=== PATIENT | female | born 1985 | race Two or more races ===

== ENCOUNTER → 2024-03-12 | Outpatient (BNVA) | payer MEDICAID, SELFPAY | END | disposition home or self-care (01) | PROVIDERS: PCP Nurse Practitioner Family; Referring Provider Nurse Practitioner Family; Visit Provider Nurse Practitioner Family | DX: G43.919 Migraine, unspecified, intractable, without status migrainosus (principal) | CPT/HCPCS: 99213 ==

== ENCOUNTER → 2024-05-08 | Outpatient (BNVA) | payer MEDICAID, SELFPAY | END | disposition home or self-care (01) | PROVIDERS: PCP Nurse Practitioner Family; Referring Provider Nurse Practitioner Family; Visit Provider Nurse Practitioner Primary Care | DX: G43.919 Migraine, unspecified, intractable, without status migrainosus (principal); Z13.31 Encounter for screening for depression | CPT/HCPCS: 99214 ==

== ENCOUNTER → 2024-05-19 | Outpatient (BNVA) | payer MEDICAID, SELFPAY | END | disposition home or self-care (01) | PROVIDERS: PCP Nurse Practitioner Family; Referring Provider Nurse Practitioner Family; Visit Provider Nurse Practitioner Family | DX: E55.9 Vitamin D deficiency, unspecified (principal); Z71.2 Person consulting for explanation of examination or test findings; R73.03 Prediabetes; E78.5 Hyperlipidemia, unspecified; F32.9 Major depressive disorder, single episode, unspecified; F41.9 Anxiety disorder, unspecified ==

== ENCOUNTER → 2024-06-16 | Outpatient (BNVA) | payer MEDICAID, SELFPAY | END | disposition home or self-care (01) | PROVIDERS: PCP Nurse Practitioner Family; Referring Provider Nurse Practitioner Family; Visit Provider Nurse Practitioner Family | DX: F32.1 Major depressive disorder, single episode, moderate (principal); G47.00 Insomnia, unspecified; F41.9 Anxiety disorder, unspecified; F40.9 Phobic anxiety disorder, unspecified; R10.13 Epigastric pain; R14.0 Abdominal distension (gaseous) | CPT/HCPCS: 99214 ==

== ENCOUNTER → 2024-07-16 | Outpatient (BNVA) | payer MEDICAID, SELFPAY | END | disposition home or self-care (01) | PROVIDERS: PCP Nurse Practitioner Family; Referring Provider Nurse Practitioner Family; Visit Provider Nurse Practitioner Family | DX: G47.01 Insomnia due to medical condition (principal); F41.9 Anxiety disorder, unspecified; F33.1 Major depressive disorder, recurrent, moderate; F40.9 Phobic anxiety disorder, unspecified | CPT/HCPCS: 99212; G0463 ==

== ENCOUNTER → 2024-08-24 | Outpatient (BNVA) | payer MEDICAID, SELFPAY | END | disposition home or self-care (01) | PROVIDERS: PCP Nurse Practitioner Family; Referring Provider Nurse Practitioner Family; Visit Provider Nurse Practitioner Family | DX: Z00.01 Encounter for general adult medical examination with abnormal findings (principal); R10.2 Pelvic and perineal pain; Z11.3 Encounter for screening for infections with a predominantly sexual mode of transmission; R73.03 Prediabetes; E78.5 Hyperlipidemia, unspecified; G43.919 Migraine, unspecified, intractable, without status migrainosus; E66.3 Overweight; Z68.25 Body mass index [BMI] 25.0-25.9, adult; Z72.3 Lack of physical exercise; R10.13 Epigastric pain; G47.00 Insomnia, unspecified; F41.9 Anxiety disorder, unspecified; F40.9 Phobic anxiety disorder, unspecified; F32.1 Major depressive disorder, single episode, moderate; Z71.85 Encounter for immunization safety counseling; K02.9 Dental caries, unspecified | CPT/HCPCS: 99173; 99215 ==

== ENCOUNTER → 2024-09-03 | Outpatient (BNVA) | payer MEDICAID, SELFPAY | END | disposition home or self-care (01) | PROVIDERS: PCP Nurse Practitioner Family; Referring Provider Nurse Practitioner Family; Visit Provider Nurse Practitioner Family | DX: Z71.2 Person consulting for explanation of examination or test findings (principal); D50.9 Iron deficiency anemia, unspecified; N92.6 Irregular menstruation, unspecified; R94.5 Abnormal results of liver function studies; E78.5 Hyperlipidemia, unspecified; R73.03 Prediabetes; E55.9 Vitamin D deficiency, unspecified | CPT/HCPCS: 99212; G0463 ==

== ENCOUNTER → 2024-09-22 | Outpatient (BNVA) | payer MEDICAID, SELFPAY | END | disposition home or self-care (01) | PROVIDERS: PCP Nurse Practitioner Family; Referring Provider Nurse Practitioner Family; Visit Provider Nurse Practitioner Family | DX: F32.A Depression, unspecified (principal) | CPT/HCPCS: 99213 ==

== ENCOUNTER → 2024-09-24 | Outpatient (CLI) | payer MEDICAID, SELFPAY ==
--- NOTE | 2024-09-24 14:30 | XR_ITS ---
Examination: Pelvic ultrasound, transabdominal, complete Technique: Transabdominal ultrasound of the pelvis performed using grayscale imaging Date and time of exam: September 24, 2024 1451 hours INDICATIONS: Pelvic pain beginning one year ago, intrauterine device low in position on CT pelvis July 30, 2022 FINDINGS: Uterus 11.3 cm vascular mass 21 x 15 x 17 mm lower uterine body cervix region Intrauterine device low in position in the lower uterine segment Scarring in the anterior fundus Endometrial stripe 1.4 cm Right ovary 2.8 x 2.4 cm arterial flow small follicles Left ovary 3.0 x 2.5 cm small follicles IMPRESSION: Recommend transvaginal pelvic sonography follow-up to assess the mass in the lower uterine segment/cervix
== END | disposition home or self-care (01) ==
PROVIDERS: PCP Nurse Practitioner Family; Referring Provider Nurse Practitioner Family; Visit Provider Nurse Practitioner Family
DX: R19.09 Other intra-abdominal and pelvic swelling, mass and lump (principal)
CPT/HCPCS: 76856

== ENCOUNTER → 2024-10-12 | Outpatient (BNVA) | payer MEDICAID, SELFPAY | END | disposition home or self-care (01) | PROVIDERS: PCP Nurse Practitioner Family; Referring Provider Nurse Practitioner Family; Visit Provider Nurse Practitioner Family | DX: Z71.2 Person consulting for explanation of examination or test findings (principal); D50.9 Iron deficiency anemia, unspecified; N85.9 Noninflammatory disorder of uterus, unspecified; N92.6 Irregular menstruation, unspecified; R94.5 Abnormal results of liver function studies ==

== ENCOUNTER → 2024-12-01 | Outpatient (BNVA) | payer MEDICAID, SELFPAY | END | disposition home or self-care (01) | PROVIDERS: PCP Nurse Practitioner Family; Referring Provider Nurse Practitioner Family; Visit Provider Nurse Practitioner Family | DX: Z71.2 Person consulting for explanation of examination or test findings (principal); D50.9 Iron deficiency anemia, unspecified; N85.8 Other specified noninflammatory disorders of uterus; N92.6 Irregular menstruation, unspecified | CPT/HCPCS: 99212; G0463 ==

== ENCOUNTER → 2024-12-02 | Outpatient (BNVA) | payer MEDICAID, SELFPAY | END | disposition home or self-care (01) | PROVIDERS: PCP Nurse Practitioner Family; Referring Provider Nurse Practitioner Family; Visit Provider Nurse Practitioner Family | DX: Z71.2 Person consulting for explanation of examination or test findings (principal); D50.9 Iron deficiency anemia, unspecified; N92.6 Irregular menstruation, unspecified; N85.8 Other specified noninflammatory disorders of uterus; Z23 Encounter for immunization | CPT/HCPCS: 90471; 90686; 99213 ==

== ENCOUNTER → 2024-12-14 | Outpatient (BNVA) | payer MEDICAID, SELFPAY | END | disposition home or self-care (01) | PROVIDERS: PCP Nurse Practitioner Family; Referring Provider Nurse Practitioner Family; Visit Provider Nurse Practitioner Family | DX: Z71.2 Person consulting for explanation of examination or test findings (principal); E78.5 Hyperlipidemia, unspecified; E55.9 Vitamin D deficiency, unspecified; R73.03 Prediabetes; R94.5 Abnormal results of liver function studies | CPT/HCPCS: 99213 ==

== ENCOUNTER → 2024-12-23 | Outpatient (BNVA) | payer MEDICAID, SELFPAY | END | disposition home or self-care (01) | PROVIDERS: PCP Nurse Practitioner Family; Referring Provider Nurse Practitioner Family; Visit Provider Nurse Practitioner Family | DX: F32.1 Major depressive disorder, single episode, moderate (principal); F41.9 Anxiety disorder, unspecified; G47.00 Insomnia, unspecified | CPT/HCPCS: 99214 ==

== ENCOUNTER → 2024-12-29 | Outpatient (BNVA) | payer MEDICAID, SELFPAY | END | disposition home or self-care (01) | PROVIDERS: PCP Nurse Practitioner Family; Referring Provider Nurse Practitioner Family; Visit Provider Nurse Practitioner Family | DX: Z71.3 Dietary counseling and surveillance (principal); D50.9 Iron deficiency anemia, unspecified; E66.3 Overweight; Z68.27 Body mass index [BMI] 27.0-27.9, adult; G47.00 Insomnia, unspecified | CPT/HCPCS: 85018; 99214 ==

== ENCOUNTER → 2025-01-26 | Outpatient (BNVA) | payer MEDICAID, SELFPAY | END | disposition home or self-care (01) | PROVIDERS: PCP Nurse Practitioner Family; Referring Provider Nurse Practitioner Family; Visit Provider Nurse Practitioner Family | DX: Z71.3 Dietary counseling and surveillance (principal); D50.9 Iron deficiency anemia, unspecified; E66.3 Overweight; Z68.26 Body mass index [BMI] 26.0-26.9, adult | CPT/HCPCS: 99214 ==

== ENCOUNTER → 2025-02-17 | Outpatient (BNVA) | payer MEDICAID, SELFPAY | END | disposition home or self-care (01) | PROVIDERS: PCP Nurse Practitioner Family; Referring Provider Nurse Practitioner Family; Visit Provider Nurse Practitioner Family | DX: D50.9 Iron deficiency anemia, unspecified (principal) | CPT/HCPCS: 99213 ==

== ENCOUNTER → 2025-02-26 | Outpatient (BNVA) | payer MEDICAID, SELFPAY | END | disposition home or self-care (01) | PROVIDERS: PCP Nurse Practitioner Family; Referring Provider Nurse Practitioner Family; Visit Provider Nurse Practitioner Family | DX: Z71.3 Dietary counseling and surveillance (principal); E66.9 Obesity, unspecified; N64.9 Disorder of breast, unspecified; Z68.25 Body mass index [BMI] 25.0-25.9, adult | CPT/HCPCS: 99214 ==